=== PATIENT | female | born 1980 | race Caucasian/White ===

== ENCOUNTER → 2016-11-27 | Outpatient (CLI) | payer OTHER | END | disposition home or self-care (01) | LOC: LABWHC1 09:50 | PROVIDERS: ATTEND Obstetrics & Gynecology | DX: N91.2 Amenorrhea, unspecified (principal) | CPT/HCPCS: 36415; 84702 ==

== ENCOUNTER → 2018-05-25 | Outpatient (CLI) | payer OTHER | END | disposition home or self-care (01) | LOC: LABWHC1 09:06 | PROVIDERS: ATTEND Obstetrics & Gynecology | DX: Z34.90 Encounter for supervision of normal pregnancy, unspecified, unspecified trimester (principal); Z3A.00 Weeks of gestation of pregnancy not specified | CPT/HCPCS: 36415; 84702 ==

== ENCOUNTER → 2018-11-30 | Outpatient (CLI) | payer OTHER ==
--- NOTE | 2018-11-30 08:38 | MM ---
Reason for exam: screening (asymptomatic). Baseline mammogram. History: Family history of breast cancer in paternal grandmother. Taking hormonal contraceptives beginning at age 18. Physical Findings: Nurse did not find any significant physical abnormalities on exam. MG Screening Mammo w CAD Bilateral CC and MLO view(s) were taken. The breast tissue is heterogeneously dense. This may lower the sensitivity of mammography. There is no discrete abnormality. These results were verbally communicated with the patient and result sheet given to the patient on 11/30/18. ASSESSMENT: Negative, BI-RAD 1 RECOMMENDATION: Routine screening mammogram of both breasts at age 41.
== END | disposition home or self-care (01) ==
LOC: RADMAMWWP 07:06
PROVIDERS: ATTEND Obstetrics & Gynecology
DX: Z12.31 Encounter for screening mammogram for malignant neoplasm of breast (principal)
CPT/HCPCS: 77067

== ENCOUNTER → 2020-01-18 | Outpatient (CLI) | payer SELFPAY | END | disposition home or self-care (01) | LOC: LABWHC1 09:55 | PROVIDERS: ATTEND Obstetrics & Gynecology | DX: N91.2 Amenorrhea, unspecified (principal) | CPT/HCPCS: 36415; 84702 ==

== ENCOUNTER → 2021-04-02 | Outpatient (CLI) | payer OTHER | END | disposition home or self-care (01) | LOC: LABWHC1 09:56 | PROVIDERS: ATTEND Obstetrics & Gynecology | DX: N92.6 Irregular menstruation, unspecified (principal) | CPT/HCPCS: 36415; 84702 ==

== ENCOUNTER 2023-10-08 09:41 | Day surgery (SDC) | payer OTHER ==
--- NOTE | 2023-10-08 00:10 | P.HPOB ---
History of Present Illness H&P Date: 10/08/23 Chief Complaint: DEEPA III 43 year old presents for LEEP. She had ascus pap but DEEPA III. Review of Systems All systems: negative Constitutional: Denies chills, Denies fever Eyes: denies blurred vision, denies pain Ears, nose, mouth and throat: Denies headache, Denies sore throat Cardiovascular: Denies chest pain, Denies shortness of breath Respiratory: Denies cough Gastrointestinal: Denies abdominal pain, Denies diarrhea, Denies nausea, Denies vomiting Genitourinary: Denies dysuria, Denies hematuria Musculoskeletal: Denies myalgias Integumentary: Denies pruritus, Denies rash Neurological: Denies numbness, Denies weakness Psychiatric: Denies anxiety, Denies depression Endocrine: Denies fatigue, Denies weight change Past Medical History Additional Past Medical History / Comment(s): Raynauds History of Any Multi-Drug Resistant Organisms: None Reported Past Surgical History: Section Past Anesthesia/Blood Transfusion Reactions: No Reported Reaction Additional Past Anesthesia/Blood Transfusion Reaction / Comment(s): Pt. worried about general anesthesia. Smoking Status: Current every day smoker - Past Family History Mother Family Medical History: Coronary Artery Disease (CAD) Additional Family Medical History / Comment(s): valve replacement Sister(s) History Unknown: Yes Family Medical History: Cancer Additional Family Medical History / Comment(s): leukemia Medications and Allergies Home Medications Medication Instructions Recorded Confirmed Type Ibuprofen [Advil] 200 mg PO Q6HR PRN 10/05/23 10/05/23 History medroxyPROGESTERone [Depo-Provera] 1 ml SQ Q90D 10/05/23 10/05/23 History Allergies Allergy/AdvReac Type Severity Reaction Status Date / Time No Known Allergies Allergy Verified 10/05/23 15:21 Exam Osteopathic Statement: *. No significant issues noted on an osteopathic structural exam other than those noted in the History and Physical/Consult. Heart: RRR Lungs: CTAB ABdomen: soft, nontender Extremeties: neg julissa's Assessment and Plan (1) ASCUS with positive high risk human papillomavirus of vagina Status: Acute Code(s): R87.620 - ATYP SQUAM CELL OF UNDET SIGNFC CYTO SMR VAGN (ASC-US); R87.811 - VAGINAL HIGH RISK HPV DNA TEST POSITIVE SNOMED Code(s): 831674567 (2) DEEPA III (cervical intraepithelial neoplasia grade III) with severe dysplasia Status: Acute Code(s): D06.9 - CARCINOMA IN SITU OF CERVIX, UNSPECIFIED SNOMED Code(s): 217914706 Plan: 1. LEEP -indicated with 2 grade discrepency between pap and colposcopy
[~2023-10-08 09:41] MED LIST: Pre Op ABX Message 1 EACH MISC MISCELLANE ONE
[2023-10-08] MEDS ORDERED: DEXAMETHASONE SOD PHOSPHATE 4 MG/ML 1 ML VIAL IV ONE (09:56)
[2023-10-08] MEDS ORDERED: HYDROmorphone 0.5 MG/0.5 ML SYRINGE IVP PRN (09:56)
[2023-10-08] MEDS ORDERED: LACTATED RINGERS 1,000 ML IV SCH (09:56)
[2023-10-08] MEDS ORDERED: ONDANSETRON 4 MG/2 ML VIAL IVP ONE (09:56)
[2023-10-08] MEDS ORDERED: FERRIC SUBSULFATE (MONSELS) JAR TOPICAL ONE (11:48)
--- NOTE | 2023-10-08 11:57 | P.OP ---
Date of Procedure: 10/08/23 Preoperative Diagnosis: 1. DEEPA III Postoperative Diagnosis: same Procedure(s) Performed: LEEP and administration of depo provera Anesthesia: MAC Surgeon: Shelley Colunga Estimated Blood Loss (ml): 2 IV fluids (ml): 400 Urine output (ml): 10 Pathology: other (cervical cone) Condition: stable Disposition: PACU Operative Findings: normal appearing cervix Description of Procedure: The operating room where general anesthesia was obtained without difficulty. She was prepped and draped in normal sterile fashion in dorsal lithotomy position, legs placed in the Marino stirrups. The left deltoid muscle was identified and alcohol swab was used to create a still sterile area the Depo- Provera was drawn up 1 mL 250 mL and injected intramuscularly into the left deltoid muscle. Attention was then turned to the pelvis. The bladder was drained of all urine. The coated bivalve speculum was placed in the vagina. The 2 cm loop was used to obtain a cervical cone specimen from left to right. Another pass was made to get more tissue near the endocervical canal. The ball tip cautery was then used to obtain hemostasis. Monsels solution was then placed. All instruments removed from the vagina. Patient tolerated procedure well. Sponge and instrument counts correct 2. She was taken to recovery in stable condition.
[2023-10-08 12:14] VITALS: TEMP 97
[2023-10-08 13:03] VITALS: RESP 16
[2023-10-08 13:51] VITALS: BP 124/66; PULSE 69
== END 2023-10-08 13:00 | disposition home or self-care (01) ==
LOC: OR 09:41
PROVIDERS: ATTEND Obstetrics & Gynecology
DX: D06.9 Carcinoma in situ of cervix, unspecified (principal); I73.00 Raynaud's syndrome without gangrene; F17.210 Nicotine dependence, cigarettes, uncomplicated; N72 Inflammatory disease of cervix uteri; Z82.49 Family history of ischemic heart disease and other diseases of the circulatory system; Z80.6 Family history of leukemia; Z79.3 Long term (current) use of hormonal contraceptives; Z79.899 Other long term (current) drug therapy
CPT/HCPCS: 57522; 81025; 88342; 88307; J1100; J2405

== ENCOUNTER → 2024-10-18 | Outpatient (CLI) | payer OTHER ==
--- NOTE | 2024-10-18 13:42 | US ---
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 TECHNIQUE: Scanned left submandibular at area of concern. FINDINGS: *Hypoechoic area seen left submandibular area with vascularity: 0.9 x 0.6 x 0.4 cm *Hypoechoic area with hyperechoic center and vascular hilum seen left submandibular area: 1.1 x 1.3 x 0.7 cm. IMPRESSION: Small hypoechoic nodules too small to characterize but likely related to small lymph nod es. [facility], , 10/18/2024 1:39 PM
--- NOTE | 2024-10-18 14:49 | XR ---
EXAMINATION TYPE: XR mandible complete DATE OF EXAM: 10/18/2024 1:45 PM COMPARISON: None CLINICAL INDICATION: Female, 44 years old with history of swelling; [facility] TECHNIQUE: : XR mandible complete views of the mandible were obtained. FINDINGS: The mandible is intact. Dental work noted. Radiographic evaluation of the orbits fail to demonstrate evidence of an orbital fracture. The adjacent paranasal sinuses are well aerated an without evidence of intra-cavitary fluid accumulation. The nasal bridge appears intact. The mandible appears intact. M astoid air cells are well aerated. The frontal sinus and maxillary sinuses are well aerated. IMPRESSION: Intact mandible. No evidence of fracture. [facility], Workstation: [facility], 10/18/2024 2:47 PM
== END | disposition home or self-care (01) ==
LOC: RADUSWWP 13:10
PROVIDERS: ATTEND Family Medicine
DX: K11.9 Disease of salivary gland, unspecified (principal)
CPT/HCPCS: 70110; 76536

== ENCOUNTER → 2024-11-12 | Outpatient (CLI) | payer OTHER ==
--- NOTE | 2024-11-12 13:34 | CT ---
EXAMINATION TYPE: CT soft tissue neck w con DATE OF EXAM: 11/12/2024 8:55 AM COMPARISON: None. 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 Reconstructed images in the coronal plane and sagitt al plane are reviewed. Contrast used:100ml mL of Isovue 300 with IV Contrast, (none if empty) Oral contrast used: (none if empty) CT DLP: 338.5 mGycm, Automated exposure control for dose reduction was used. FINDINGS: Limited CT sections are obtained the lung apices. The lung apices appear clear. CT neck: The torus tubarius and fossa of Rosenmuller are normal. Radio Rigger spaces are normal. Para nasal sinuses and mastoid air cells are clear. Parotid glands appear normal and symmetrical. Submandibular glands, are normal. No suspicious calci fications are identified. No masses are evident. Parapharyngeal spaces are normal. No suspicious briana nopathy is evident. The hypopharynx appears within normal limits. Vocal cord level appear symmetrical. Thyroid as visualized is normal. Osseous structures are normal. IMPRESSION: 1. No suspicious changes within the salivary glands. [facility], , 11/12/2024 1:31 PM
== END | disposition home or self-care (01) ==
LOC: RADCTMAIN 08:08
PROVIDERS: ATTEND Otolaryngology
DX: K11.23 Chronic sialoadenitis (principal)
CPT/HCPCS: 70491; Q9967